=== PATIENT | male | born 1985 | race African-American/Black ===

== ENCOUNTER 2018-11-04 09:16 | Emergency (ER) | payer OTHER ==
[2018-11-04 09:37] VITALS: BP 126/77; PULSE 69; TEMP 97.8; BMI 22.9
[2018-11-04] MEDS ORDERED: IBUPROFEN 600 MG TABLET (FP) PO ONE ×2 (09:55→09:58)
--- NOTE | 2018-11-04 09:58 | PDOC ---
History of Present Illness - General Chief Complaint: Bite Stated Complaint: BUG BITE Time Seen by Provider: 11/04/18 09:35 History Source: Patient Exam Limitations: No Limitations - History of Present Illness Initial Comments: 11/04/18 09:53 Patient is here with complaints of swelling, pain, lesion to his left calf. States was visiting family in [place] and thinks was bitten by some type of insect is uncertain. However has had progressive worsening of swelling and pain to his calf with fluctuant lesion 11/04/18 12:41 Occurred: reports: last week Severity: reports: moderate Pain Location: reports: lower extremity (left calf) Modifying Factors: improves with: None Associated Symptoms (Fall): denies symptoms Past History - Travel Traveled outside of the country in the last 30 days: Yes If so, where?: [place] Close contact w/someone who was outside of country & ill: No - Past Medical History Allergies/Adverse Reactions: Allergies Allergy/AdvReac Type Severity Reaction Status Date / Time No Known Allergies Allergy Verified 11/04/18 09:24 Home Medications: Ambulatory Orders Sulfamethoxazole/Trimethoprim [Bactrim *Ds*] 1 each PO BID #14 tablet 11/04/18 COPD: No - Suicide/Smoking/Psychosocial Hx Smoking History: Never smoked Review of Systems - Review of Systems Able to Perform ROS?: Yes Is the patient limited Marshallese proficient: Yes Constitutional: Yes: See HPI. No: Symptoms Reported, Chills, Fever, Malaise HEENTM: Yes: See HPI. No: Symptoms Reported Musculoskeletal: Yes: Symptoms Reported, See HPI, Muscle Pain (right calf) All Other Systems: Reviewed and Negative *Physical Exam - Vital Signs Last Vital Signs Temp Pulse Resp BP Pulse Ox 97.8 F 69 18 126/77 98 11/04/18 09:21 11/04/18 09:21 11/04/18 09:21 11/04/18 09:21 11/04/18 09:21 - Physical Exam General Appearance: Yes: Nourished, Appropriately Dressed, Apparent Distress, Mild Distress HEENT: positive: SHERRI, Normal ENT Inspection, TMs Normal, Pharynx Normal Neck: positive: Supple. negative: Tender, Lymphadenopathy (R), Lymphadenopathy (L) Respiratory/Chest: positive: Lungs Clear, Normal Breath Sounds Gastrointestinal/Abdominal: positive: Soft. negative: Tender Musculoskeletal: positive: Decreased Range of Motion. negative: Normal Inspection Extremity: positive: Normal Capillary Refill, Normal Range of Motion, Swelling, Erythema. negative: Normal Inspection Integumentary: positive: Erythema (erythema, with central purulent lesion that straining serous and purulent drainage. Consistent with probable infected insect bite. Erythema circumferentially is approximately 10 cm fluctuant lesion is approximately 2 cm in the central area), Swelling. negative: Normal Color Neurologic: positive: game warden II-XII NML intact, Fully Oriented, Alert, Normal Mood/ Affect, Normal Response, Motor Strength 5/5 Progress Note - Progress Note Progress Note: Cellulitis of, wound culture received, we'll treat with antibiotics elevation soaks *DC/Admit/Observation/Transfer Diagnosis at time of Disposition: Abscess - Discharge Dispostion Disposition: HOME Condition at time of disposition: Stable Decision to Admit order: No - Prescriptions Prescriptions: Sulfamethoxazole/Trimethoprim [Bactrim *Ds*] 1 each PO BID #14 tablet - Referrals - Patient Instructions Printed Discharge Instructions: DI for Insect Bites and Stings Additional Instructions: Rest, keep area elevated. Avoid strenuous activity or exercise until wound is healed Use hot soaks to area to bring more blood to the surface and encourage drainage May change dressings as needed to keep clean - while in the shower remove dressing and quickly pull the packing taken out. Allow water from shower to wash area thoroughly for 2-3 minutes, and pat dry upon exit of shower and replace dressing. Change his dressing daily until the wound is completely healed. May use Tylenol or Motrin for mild pain relief Use stronger medications as directed and prescribed Continue all medications as prescribed Followup with private physician in 2-3 days for wound check Return to emergency Department for worsening swelling, pain, redness, fevers as needed - Post Discharge Activity Forms/Work/School Notes: Back to Work
== END 2018-11-04 10:00 | disposition home or self-care (01) ==
LOC: JER 09:16 → JERFT 09:16
DX: S80.869A Insect bite (nonvenomous), unspecified lower leg, initial encounter (principal); L03.119 Cellulitis of unspecified part of limb; W57.XXXA Bitten or stung by nonvenomous insect and other nonvenomous arthropods, initial encounter; Y93.89 Activity, other specified; Y92.89 Other specified places as the place of occurrence of the external cause; Y99.8 Other external cause status
CPT/HCPCS: 87070; 87186; 87205; 99282-25